=== PATIENT | male | born 1975 | race Caucasian/White ===

== ENCOUNTER 2020-10-10 04:26 | Emergency (ER) | payer OTHER ==
[~2020-10-10] VITALS: Ht 175.3 cm; Wt 99.8 kg
[2020-10-10 04:30] VITALS: BP_SYST 133
[2020-10-10] MEDS ORDERED: DIPH-TET-PERTUS Vaccine 0.5 ML VIAL (ADACEL) I.M. ONE (05:00)
[2020-10-10] MEDS ORDERED: ceFAZolin SODIUM 1 GM VIAL IM ONE (05:00)
[2020-10-10] MEDS ORDERED: LIDOCAINE 1%, 20 ML MDV 20 ML ONE ×2 (05:37→07:48)
[2020-10-10] MEDS ORDERED: ceFAZolin SODIUM 1 GM VIAL ONE (05:53)
[2020-10-10] MEDS ORDERED: LIDOCAINE 2%, 20 ML MDV ONE (07:42)
[2020-10-10 11:19] VITALS: BP_SYST 138
== END 2020-10-10 11:21 | disposition short-term general hospital (02) ==
LOC: SED 04:26
DX: S01.21XA Laceration without foreign body of nose, initial encounter (principal)
CPT/HCPCS: 12013; 70450; 70486; 76376; 90471; 90715; 96372; 99285; J0690; J2001 ×2